=== PATIENT | male | born 1950 | race Caucasian/White ===

== ENCOUNTER 2020-01-26 18:01 | Inpatient (IN) | payer OTHER, MEDICARE, SELFPAY ==
[2020-01-26] VITALS (11 sets, daily range): BP systolic 104–135; BP diastolic 52–77; PULSE 87–103; RESP 14–20; TEMP 36.7–37.2; O2SAT 92–100; BMI 24.7
--- NOTE | ~2020-01-26 | CT_ITS ---
EXAMINATION: CT brain wo con DATE: 01/26/2020 19:17 INDICATION: Unresponsive. Altered mental state. TECHNIQUE: Computed tomography (CT) of the head was performed without intravenous contrast. The mA wa s adjusted according to patient size. Iterative reconstruction technique was employed. Exam dose: 68 1.00 mGy-cm total exam DLP. COMPARISON: None FINDINGS: There is encephalomalacia involving the distribution of the right middle cerebral artery co nsistent with chronic infarct. There is central and cortical cerebral atrophy. No intracranial mass lesion or hemorrhage, midline shift or mass effect. No subdural or epidural jamil chay. The mastoid air cells and included paranasal sinuses are unremarkable. No fracture or bone destruction of the cranial vault. An endotracheal tube is noted. IMPRESSION: Chronic infarct of the right middle cerebral artery territory Central and cortical cerebral atrophy No acute intracranial finding is noted Reviewed, dictated and finalized at [facility]. Reviewed, dictated and finalized at [facility].
--- NOTE | ~2020-01-26 | XR_ITS ---
XR chest 1V portable DATE: 01/26/2020 18:46 INDICATION: Shortness of breath TECHNIQUE: Portable AP chest on 01/26/2020 at 1835 hours COMPARISON: 08/24/2017 two-view chest FINDINGS: Normal heart size. Aortic mild unfolding. No hilar or mediastinal enlargement. No pulmonary infiltrate or consolidation, pleural effusion or pulmonary vascular congestion or pneumothorax. Diffuse osteopenia. IMPRESSION: No active cardiopulmonary disease Reviewed, dictated and finalized at [facility].
--- NOTE | 2020-01-26 18:04 | ECG_ITS ---
Measurements Intervals [place] Rate: 87 P: 68 VA: 180 QRS: -48 QRSD: 101 T: 74 QT: 349 QTc: 420 Interpretive Statements SINUS RHYTHM LEFT ANTERIOR FASCICULAR BLOCK ABNORMAL ECG Electronically Signed On 01-27-2020 6:45:26 CDT by Vasyl Puente D.O.
[2020-01-26] MEDS: SODIUM CHLORIDE 0.9% IV 1,000 ML 999 ML IV CONT (18:07)
--- NOTE | 2020-01-26 18:07 | ED.AMS ---
HPI - Altered Mental Status General Chief Complaint: Altered Mental Status Stated Complaint: AMS Time Seen by Provider: 01/26/20 18:04 History of Present Illness HPI narrative: Brought in by EMS for altered mental status. Reportedly unresponsive throughout the day today. When full service supervisor came in they decided he needed to be seen. He has an advanced directive specifying DNR, comfort focused care. EMS reports that he responded only to sternal rub and required assistance with a BVM for ventilation. History limited by mental status Related Data Home Medications Medication Instructions Recorded Confirmed albuterol sulfate 2 puff INHALATION PRN PRN 01/26/20 01/27/20 atorvastatin 40 mg PO DAILY 01/26/20 01/27/20 baclofen 5 mg PO BID 01/26/20 01/27/20 citalopram 20 mg PO DAILY 01/26/20 01/27/20 diltiazem HCl 30 mg PO QID 01/26/20 01/27/20 fexofenadine [Chantal Allergy] 180 mg PO DAILY 01/26/20 01/27/20 furosemide 20 mg PO EVERY OTHER DAY 01/26/20 01/27/20 gabapentin 300 mg PO TID 01/26/20 01/27/20 lisinopril 5 mg PO DAILY 01/26/20 01/27/20 mirtazapine 15 mg PO HS 01/26/20 01/27/20 potassium chloride 40 meq PO EVERY OTHER DAY 01/26/20 01/27/20 quetiapine 25 mg PO HS 01/26/20 01/27/20 tiotropium bromide [Spiriva 2 puff INHALATION QAM 01/26/20 01/27/20 Respimat] Aspirin Childrens 81 mg PO DAILY 01/27/20 01/27/20 acetaminophen [Tylenol] 650 mg PO PRN PRN 01/27/20 01/27/20 apixaban [Eliquis] 5 mg PO BID 01/27/20 01/27/20 docusate sodium 100 mg PO BID 01/27/20 01/27/20 fluticasone furoate-vilanterol 1 puff INHALATION DAILY 01/27/20 01/27/20 guaifenesin 400 mg PO BID 01/27/20 01/27/20 ibuprofen 600 mg PO TID 01/27/20 01/27/20 ondansetron 4 mg PO PRN PRN 01/27/20 01/27/20 polyethylene glycol 3350 17 g PO PRN PRN 01/27/20 01/27/20 Allergies Allergy/AdvReac Type Severity Reaction Status Date / Time Penicillins Allergy Unknown Redness of Verified 01/26/20 19:34 Skin Review of Systems Review of Systems: ROS unobtainable: Yes unobtainable due to medical condition and unobtainable due to mental status PMFSH Past Medical History Medical History (Updated 01/27/20 @ 02:24 by Yamileth Moore DO) Anemia Carotid stenosis COPD (chronic obstructive pulmonary disease) CVA (cerebral vascular accident) x2 with most recent 1 occurring March 2016 involving the right MCA with resultant left hemiplegia. The patient has [place] in a [place] [facility] since May 2016 Depression Essential hypertension Hyperlipidemia Peptic ulcer disease Surgical History Surgical History (Updated 01/26/20 @ 21:28 by Yamileth Moore DO) PEG (percutaneous endoscopic gastrostomy) adjustment/replacement/removal Family History Family History (Updated 01/26/20 @ 21:31 by Yamileth Moore DO) Mother Diabetes mellitus CHF (congestive heart failure) Father Acute myocardial infarction Sibling , age 60 Cancer Comments unable to obtain Exam Const: Other: Severe distress. unable to breath without assistance opening the airway HENMT: Mouth: Yes dry mucous membranes Eyes: Pupils: Equal, round and reactive pupils present Resp: Effort & Inspection: labored Auscultation: rhonchi Cardio: Rate: tachycardic Rhythm: regular rhythm GI: GI Palp: Yes Soft to palpation Skin: General skin exam: normal color Neuro: Other: responsive only to painful stimuli. Moves all extremities. Extrem: General: normal to inspection and no edema Course Vital Signs Vital signs: Vital Signs Temperature 36.7 C 01/26/20 18:03 Pulse Rate 90 01/26/20 18:03 Respiratory Rate 20 01/26/20 18:03 Blood Pressure 116/52 L 01/26/20 18:03 Pulse Oximetry 97 01/26/20 18:03 Temperature 37.2 C 01/26/20 23:13 Pulse Rate 103 H 01/26/20 23:13 Respiratory Rate 20 01/26/20 23:13 Blood Pressure 106/54 L 01/26/20 23:13 Pulse Oximetry 92 01/26/20 23:13 MDM - Altered Mental Status MDM Narrative Medical decision making narrative:
[2020-01-26 18:12] LABS: Alveolar/Arterial O2 Gradient 90.8 mmHg; Base Excess ABG -17.8 mEq/l (+/-2.0); Fractional Inspired Oxygen 28 %; Oxygen Content ABG 9.7 %vol (16.0-22.0); Oxyhemoglobin 74.4 % THb (90.0-100.0); PCO2 ABG 55.4 mmHg (35.0-45.0); PO2 FiO2 Ratio Arterial Blood 1.55 %; Total Hemoglobin 9.2 g/dL (12.0-18.0)
[2020-01-26 18:13] LABS: Device NASAL CANNULA; Modified Allen's Test Pass; Oxygen Saturation ABG 55.1 % (95.0-100.0); PO2 ABG 43.5 mmHg (80.0-100.0); Site Drawn RIGHT RADIAL; pH ABG 6.987 (7.350-7.450)
[2020-01-26 18:23] LABS: Basophils Percent Auto 0.2 % (0.2-1.2); Eosinophils Percent Auto 0.1 % (0-4.4); Hematocrit 27.8 % (42.0-52.0); Hemoglobin 8.3 g/dL (14.0-18.0); Immature Granulocyte Absolute 0.04 K/mm3 (0.00-0.031); Immature Granulocyte Percent A 0.3 % (0-0.5); Lymphocytes Absolute Auto 0.61 K/mm3 (0.9-3.2); Lymphocytes Percent Auto 4.7 % (18.3-44.2); Mean Corpuscular HGB Conc 29.9 g/dl (32-36); Mean Corpuscular Hemoglobin 29.9 pg (26-34); Mean Platelet Volume 11.1 fl (7.4-10.4); Monocytes Absolute Auto 0.8 K/mm3 (0.1-0.6); Monocytes Percent Auto 6.3 % (2.6-8.5); Neutrophils Absolute Auto 11.5 K/mm3 (1.3-6.7); Neutrophils Percent Auto 88.4 % (45.5-73.1); Nucleated Red Blood Cells Perc 0.2 % (0.0-0.2); Platelet Count Result 277 k/mm3 (150-375); Red Blood Count 2.78 M/mm3 (4.6-6.20); Red Cell Distribution Width 14.4 % (11.5-14.5)
[2020-01-26 18:27] LABS: Add Urine Microscopic? YES; Appearance Urine Clear (Clear); Bacteria Urine Trace /hpf; Bilirubin Urine Negative (Negative); Blood Urine Negative (Negative); Color Urine Yellow (Yellow); Glucose Urine UA Negative (Negative); Hyaline Casts Urine 30-49 /lpf; Ketones Urine Negative (Negative); Leukocyte Esterase Ur Negative LEU/UL (Negative); Mucus Urine Rare /lpf; Nitrate Urine Negative (Negative); Protein Urine 1+ mg/dL (Negative); RBC Urine 0-2 /hpf (0-2); Specific Grav Ur 1.016 (1.001-1.035); Squamous Epithelial Cell Urine Rare /hpf (Few); Urobilinogen Urine Negative mg/dL (<2.0); WBC Urine 0-3 /hpf
[2020-01-26] MEDS: SODIUM BICARBONATE 8.4% 50 MEQ/50 ML VIAL 75 MEQ IV PUSH (18:32)
[2020-01-26 18:34] LABS: Acanthocytes 1+ (NORMAL); Ovalocytes 1+ (NORMAL); Platelet Estimate Adequate (Adequate)
[2020-01-26 18:35] LABS: Lactic Acid Reflex 1.1 mmol/L (0.7-2.1)
[2020-01-26 18:42] LABS: Alanine Aminotransferase 12 U/L (4-50); Albumin Level 3.5 g/dL (3.5-5.1); Alkaline Phosphatase 94 U/L (38-126); Anion Gap 8 mmol/L (8-16); Aspartate Amino Transferase 25 U/L (17-59); Bilirubin,Total < 0.1 mg/dL (0.2-1.3); Blood Urea Nitrogen 59 mg/dL (9-20); CRP 0.6 mg/dL (<1.0); Calcium 8.3 mg/dL (8.4-10.2); Carbon Dioxide 11 mmol/L (22-30); Chloride 121 mmol/L (98-107); Estimated Glomerular Filt Rate 16; Glucose 114 mg/dL (75-110); Potassium 7.8 mmol/L (3.4-5.0); Sodium 140 mmol/L (137-145)
[2020-01-26 18:46] LABS: Troponin I 0.014 ng/mL (0.000-0.034)
[2020-01-26] MEDS: DEXTROSE 50% 25 GM/50 ML SYRINGE IV PUSH (18:50)
[2020-01-26] MEDS: INSULIN HUMAN REGULAR (*BKC) 100 UNITS/ML 10 UNITS IV PUSH (18:52)
[2020-01-26 19:10] LABS: INR 1.8; Prothrombin Time 20.1 Seconds (11.1-14.7)
[2020-01-26 19:11] LABS: Partial Thromboplastin Time 34.6 SECONDS (22.3-36.8)
[2020-01-26] MEDS: ALBUTEROL SULFATE NEB 2.5 MG/0.5 ML INH 10 MG INHALATION (19:24)
[2020-01-26] MEDS: CALCIUM GLUCONATE 1,000 MG/10 ML VIAL 1000 MG IV PUSH (19:28)
[2020-01-26 19:44] LABS: Alveolar/Arterial O2 Gradient 76.6 mmHg; Fractional Inspired Oxygen 40 %; Oxygen Content ABG 11.7 %vol (16.0-22.0); Oxygen Saturation ABG 98.2 % (95.0-100.0); Oxyhemoglobin 97.5 % THb (90.0-100.0); PCO2 ABG 44.7 mmHg (35.0-45.0); PO2 ABG 157.2 mmHg (80.0-100.0); PO2 FiO2 Ratio Arterial Blood 3.93 %; Total Hemoglobin 8.3 g/dL (12.0-18.0)
[2020-01-26 19:46] LABS: Device BIPAP; Modified Allen's Test Pass; Site Drawn RIGHT RADIAL; pH ABG 7.081 (7.350-7.450)
--- NOTE | 2020-01-26 20:42 | PC.NURSE ---
Genia Byrd [phone].
[2020-01-26] MEDS: SODIUM BICARBONATE 8.4% 150 MEQ in DEXTROSE 5% 1,000 ML 950 ML 100 MEQ IV CONT (20:50)
--- NOTE | 2020-01-26 20:50 | PM.IMHP ---
H&P: HPI History of Present Illness Date/Time: 01/26/20 20:50 Chief complaint: Altered mental status Narrative: History and Physical/ Summary Hernan Byrd is a 69 year old male With a past medical history of hypertension, hyperlipidemia, carotid stenosis as and 2 prior CVAs who presented to the ER via EMS from [facility] due to altered mental status. The patient had evidently been having some respiratory distress and snoring respirations throughout the day. He was less responsive. On arrival to the ER the patient was being ventilated via bag valve mask. He was still having agonal respirations with a nasal trumpet in place. His oxygen saturations were 98% on 2 L nasal cannula but clearly still having decreased respiratory effort. He was thusly placed on a BiPAP. The patient's respiratory status stabilized in at the time of my evaluation in the ER the patient was breathing 20 3 times in minute on the ventilator. The patient was opening his eyes to painful stimuli. The patient's blood pressures had remained stable since his presentation. initial labs demonstrated the patient had overt metabolic acidosis with a pH of 6.98. The patient's potassium was 7.8 in his initially EKG demonstrated peaked T-waves. He received sodium bicarb, calcium gluconate an hour long albuterol treatment in the ER. His repeat PH was 7.0. His acidosis was mostly metabolic in nature and appears be due to acute renal failure. Patient did not have any lactic acidosis. The denies any recent reported the patient having any cough or fever. I called the patient's to discuss his critical condition. She has adamant that he is a DNR/DNI. Given that his acidosis is so severe I did discuss the possibility of possible hemodialysis. The is adamant that she he she would not want the patient have any hemodialysis. She states that he has been in a nursing edel since May of 2016 after he had a CVA resulting in left-sided hemiplegia. Since that time there focus for care has been comfort base treatment only. I did discuss the possibility of continuing bicarb drip and repeating labs in a.m. dizzy of the patient's acidosis had improved and the possibility of giving him Kayexalate rectally to help with his hyperkalemia. At this time is would like all aggressive measures discontinued including the BiPAP. She would like to proceed with comfort measures only and hospice consult. All treatment alternatives were discussed in detail and family would still like to proceed in this direction. Both the patient's and son were involved in the discussion. the patient's would like to be contacted at [phone] (personal cell phone) or [phone] (work cell phone). Review of Systems Review of Systems: ROS unobtainable: Yes unobtainable due to medical condition ( Severe metabolic acidosis, metabolic encephalopathy) PMFSH Past Medical History Medical History (Updated 01/27/20 @ 02:24 by Yamileth Moore DO) Anemia Carotid stenosis COPD (chronic obstructive pulmonary disease) CVA (cerebral vascular accident) x2 with most recent 1 occurring March 2016 involving the right MCA with resultant left hemiplegia. The patient has been in a long term since May 2016 Depression Essential hypertension Hyperlipidemia Peptic ulcer disease Surgical History Surgical History (Updated 01/26/20 @ 21:28 by Yamileth Moore DO) PEG (percutaneous endoscopic gastrostomy) adjustment/replacement/removal Family History Family History (Updated 01/26/20 @ 21:31 by Yamileth Moore DO) Mother Diabetes mellitus CHF (congestive heart failure) Father Acute myocardial infarction Sibling , age 60 Cancer Meds Home Medications and Allergies Home Medications Medication Instructions Recorded Confirmed Type albuterol sulfate 2 puff INHALATION PRN PRN 01/26/20 01/27/20 History atorvastatin 40 mg PO DAILY 01/26/20 01/27/20
--- NOTE | 2020-01-26 21:04 | PC.NURSE ---
Nurse to collect BMP
[2020-01-26 22:06] LABS: Anion Gap 6 mmol/L (8-16); Blood Urea Nitrogen 57 mg/dL (9-20); Calcium 8.6 mg/dL (8.4-10.2); Carbon Dioxide 15 mmol/L (22-30); Chloride 121 mmol/L (98-107); Estimated Glomerular Filt Rate 18; Glucose 173 mg/dL (75-110); Potassium 5.8 mmol/L (3.4-5.0); Sodium 142 mmol/L (137-145)
--- NOTE | 2020-01-26 22:55 | PC.NURSE ---
This patient, Hernan Byrd, was admitted to Medical Room 250-01. Patient/family oriented to hospital policies and general routines including ID bracelet, bed and alarms, visiting hours, pain management, procedures, bathroom and other care routines, personal items, smoking policy, room service/diet, and visiting hours. Valuables list has been completed. Information on how to activate the Rapid Response Team has been discussed. Patient/Family are encouraged to report perceived risks to care and to ask questions if they do not understand what they are told or what they should do.
[2020-01-27 08:06] LABS: Expiratory Pressure 6 cmH2O; Inspiratory Pressure 12 cmH2O
--- NOTE | 2020-01-27 09:56 | PC.NURSE ---
0800: [facility] reports family has decline donation and patgeitn may be released to home. 0850: [facility] contacted per family request [phone]: Security notified of patient expiration. Security aware home to arrival within the hour.
[2020-01-27 13:52] LABS: SARS-CoV-2 RNA PCR Negative
== END 2020-01-27 02:20 | disposition expired | DRG 951 ==
LOC: ANHED 20:52 → ANH2MED 22:23
PROVIDERS: Admitting Provider Internal Medicine; Emergency Provider Emergency Medicine; Visit Provider Internal Medicine
DX: Z51.5 Encounter for palliative care (principal); J96.02 Acute respiratory failure with hypercapnia; J96.01 Acute respiratory failure with hypoxia; N17.9 Acute kidney failure, unspecified; I69.354 Hemiplegia and hemiparesis following cerebral infarction affecting left non-dominant side; E87.2 Acidosis; E87.3 Alkalosis; Z20.828 Contact with and (suspected) exposure to other viral communicable diseases; E87.5 Hyperkalemia; I10 Essential (primary) hypertension; E78.5 Hyperlipidemia, unspecified; Z66 Do not resuscitate; Z79.82 Long term (current) use of aspirin; Z79.899 Other long term (current) drug therapy; Z88.0 Allergy status to penicillin
CPT/HCPCS: 36415; 36600; 51701; 70450; 71045; 80048; 80053; 81001; 82805; 83605; 84484; 85025; 85610; 85730; 86140; 87040; 87635; 93005; 94002; 96361; 96374; 96375; 99291; C9803; J0610; J1815; J2270; J7030; J7070; U0003